=== PATIENT | male | born 1985 | race African-American/Black ===

== ENCOUNTER 2022-08-12 06:46 | Inpatient (IN) | payer OTHER ==
[~2022-08-12] VITALS: Ht 186.7 cm; Wt 110.0 kg
--- NOTE | 2022-08-12 07:04 | NUR ---
BIBGF FROM HOME C/O ABD PAIN N/V/D X2 DAYS. PT A/OX4. TOLERATING R/A WELL WITH NO RESP DISTRESS. AMB WITH STEADY GAIT. SAFETY MEASURES IN PLACE
--- NOTE | 2022-08-12 07:10 | NUR ---
BLOOD SAMPLES OBTAINED
--- NOTE | 2022-08-12 07:11 | NUR ---
PROVIDE PT WITH URINAL; AWAITING URINE SAMPLE
[2022-08-12] MEDS ORDERED: ONDANSETRON HCL/PF 4 MG/2 ML VIAL ONE (07:20)
[2022-08-12] MEDS ORDERED: MORPHINE SULFATE INJ 4 MG/ML DISP.SYRIN ONE ×2 (07:20→12:37)
--- NOTE | 2022-08-12 07:20 | NUR ---
L AC 18 g
[2022-08-12] MEDS ORDERED: IV NS 0.9% 1,000 ML BAG IV ONE (07:30)
[2022-08-12] MEDS ORDERED: MORPHINE SULFATE INJ 2 MG/ML DISP.SYRIN IV ONE (07:30)
[2022-08-12] MEDS ORDERED: ONDANSETRON HCL/PF 4 MG/2 ML VIAL IVP ONE (07:30)
[2022-08-12 07:48] LABS: CALCIUM, SERUM 9.3 mg/dL (8.5-10.1); CREATININE 1.2 mg/dL (0.6-1.3); POTASSIUM 4.1 mmol/L (3.5-5.1)
[2022-08-12 07:54] LABS: BASOPHILS % (AUTO) 0.2 % (0.0-2.0); EOSINOPHILS % (AUTO) 0.3 % (0.0-6.0); HEMATOCRIT 44 % (39-51); HEMOGLOBIN 14.9 g/dL (13.5-17.5); LYMPHOCYTES # (AUTO) 0.6 K/uL (0.8-4.8); LYMPHOCYTES % (AUTO) 9.6 % (20.0-44.0); MEAN CORPUSCULAR HGB CONC 34 g/dl (31.0-36.0); MEAN CORPUSCULAR VOLUME 89 fL (80-96); MONOCYTES # (AUTO) 0.8 K/uL (0.1-1.30); MONOCYTES % (AUTO) 12.7 % (2.0-12.0); NEUTROPHILS % (AUTO) 77.2 % (43.0-81.0); PLATELET COUNT (AUTO) 315 K/uL (150-450); RED BLOOD CELL COUNT(AUTO) 4.95 MIL/uL (4.5-6.0); WHITE BLOOD COUNT (AUTO) 6.5 K/uL (4.3-11.0)
[2022-08-12 07:55] LABS: ALBUMIN 3.5 g/dL (3.4-5.0); BILIRUBIN,DIRECT 0.2 mg/dL (0.0-0.2); BILIRUBIN,TOTAL 0.9 mg/dL (0.2-1.0); TOTAL PROTEIN, SERUM 8.8 g/dL (6.4-8.2)
--- NOTE | 2022-08-12 09:50 | NUR ---
COVID SWAB COLLECTED AND SENT TO LAB
--- NOTE | 2022-08-12 09:56 | NUR ---
[place] radha bello gave authorization to admit. [id number]
--- NOTE | 2022-08-12 11:30 | NUR ---
GOT BED 323-2 ADMITTING INFORMED.
[2022-08-12 12:27] LABS: BILIRUBIN,URINE NEGATIVE (NEGATIVE); COLOR,URINE DARK YELLOW (YELLOW); LEUKOCYTE ESTERASE ,URINE NEGATIVE (NEGATIVE); NITRITE, URINE NEGATIVE (NEGATIVE); PROTEIN,URINE TRACE mg/dl (NEGATIVE); UGLUCOSE NEGATIVE (NEGATIVE); UROBILINOGEN,URINE 0.2 EU/dL (0.2)
[2022-08-12 12:33] LABS: BACTERIA,URINE Rare /HPF (None Seen); RBC,URINE 0-2 /HPF (0-2); SQUAMOUS EPITHELIAL CELL,UR Few /HPF (None Seen); WBC,URINE 0-2 /HPF (0-3)
[2022-08-12] MEDS ORDERED: MORPHINE SULFATE INJ 4 MG/ML DISP.SYRIN IV STA (12:36)
[2022-08-12 12:55] VITALS: BP 133/79
--- NOTE | 2022-08-12 12:57 | NUR ---
ADMISSION MS RN NOTE (DAY SHIFT) Patient arrived to [address] [place] [address]/[facility] at 12:53 hours via gurney from the E.D. Patient able to stand, walk 2 steps to bed 2 in room 323. Patient presented as alert and oriented x 4, in no acute distress, mild pain, and cooperative /responsive. Will continue to care for patient per MD POC.
--- NOTE | 2022-08-12 12:58 | NUR ---
pt transfered to [address] [place], [place] [address] bedside nurse was bedside to receive pt.
[2022-08-12] MEDS ORDERED: Z GUARD REMEDY 4 OZ OINT TP PRN (13:30)
[2022-08-12] MEDS ORDERED: HYDROCODONE/APAP 5/325MG TABLET PO PRN (13:30)
[2022-08-12] MEDS ORDERED: MAGNESIUM HYDROXIDE 30 ML UDC PO PRN (13:30)
[2022-08-12] MEDS ORDERED: ZOLPIDEM TARTRATE 5 MG TABLET PO PRN (13:30)
[2022-08-12] MEDS ORDERED: MAG HYDROX/AL HYDROX/SIMETH 30 ML UDC PO PRN (13:30)
[2022-08-12] MEDS ORDERED: ACETAMINOPHEN 325 MG TABLET PO PRN (13:30)
[2022-08-12] MEDS ORDERED: ONDANSETRON HCL/PF 4 MG/2 ML VIAL IVP PRN (13:30)
[2022-08-12 16:00] VITALS: BP 130/81
--- NOTE | 2022-08-12 18:59 | NUR ---
MS RN CLOSING NOTE (DAY SHIFT) PATIENT AWAKE IN BED WITH GIRLFRIEND, THAIS, AT BEDSIDE. BED IN LOW POSITION CALL LIGHTS WITHIN REACH, NO COMPLAIN OF PAIN AND DISCOMFORT AT THIS TIME, ON ROOM AIR SATURATING WELL, PATIENT IS A/O X 4, ABLE TO MAKE NEEDS KNOWN, AMBULATORY. IV LINE AT LEFT AC#18 GAUGE WITH INFUSION OF D5 1/2 NS @ 150ML/HR INFUSING WELL. PATIENT IS NPO. KEPT CLEAN AND DRY. ALL NEEDS MET. ENDORSING TO BOARDER STEAM RNBJ, FOR GABRIELA.
--- NOTE | 2022-08-12 19:28 | NUR ---
MS RN OPENING NOTES: RECEIVED PATIENT AWAKE IN BED AWAKE, ACCOMPANIED BY FAMILY BED IN LOW POSITION CALL LIGHTS WITHIN REACH, NO COMPLAIN OF PAIN AND DISCOMFORT AT THIS TIME, ON ROOM AIR SATURATING WELL, PATIENT IS A/O X4 ABLE TO MAKE NEEDS KNOWN, AMBULATORY, ON NPO, IV LINE AT LAC#18 WITH ONGOING IV FLUID AT D5 1/2 NS@150 ML/HR INFUSING WELL, PATIENT KEPT CLEAN AND DRY ALL NEEDS MET WILL CONTINUE TO MONITOR.
[2022-08-12 20:00] VITALS: BP 115/69
[2022-08-12] MEDS: MORPHINE SULFATE INJ 2 MG/ML DISP.SYRIN IV PRN (20:17)
[2022-08-12] MEDS: IV D5/0.45 NACL 1,000 ML IV PRN (20:18)
[2022-08-13] MEDS: IV D5/0.45 NACL 1,000 ML IV PRN ×3 (03:12→19:55)
[2022-08-13 05:43] LABS: BASOPHILS % (AUTO) 0.3 % (0.0-2.0); HEMATOCRIT 40 % (39-51); HEMOGLOBIN 12.9 g/dL (13.5-17.5); LYMPHOCYTES % (AUTO) 19.5 % (20.0-44.0); MEAN CORPUSCULAR HGB CONC 33 g/dl (31.0-36.0); MEAN CORPUSCULAR VOLUME 92 fL (80-96); MONOCYTES # (AUTO) 0.9 K/uL (0.1-1.30); NEUTROPHILS # (AUTO) 3.1 K/uL (1.8-8.9); NEUTROPHILS % (AUTO) 61.2 % (43.0-81.0); PLATELET COUNT (AUTO) 270 K/uL (150-450); RED BLOOD CELL COUNT(AUTO) 4.33 MIL/uL (4.5-6.0)
[2022-08-13 06:13] LABS: CALCIUM, SERUM 8.7 mg/dL (8.5-10.1); CREATININE 1.1 mg/dL (0.6-1.3); PHOSPHORUS 3.4 mg/dL (2.5-4.9); POTASSIUM 3.8 mmol/L (3.5-5.1)
--- NOTE | 2022-08-13 06:16 | NUR ---
MS RN CLOSING NOTES: PATIENT SLEEP IN BED COMFORTABLY, BED IN LOW POSITION CALL LIGHTS WITHIN REACH, NO COMPLAIN OF PAIN AND DISCOMFORT AT THIS TIME, ON ROOM AIR SATURATING WELL, PATIENT IS A/O X4 ABLE TO MAKE NEEDS KNOWN, AMBULATORY IV LINE AT LAC#18 WITH ONGOING D5 1/2 NS@150ML/HR INFUSING WELL, PATIENT ON NPO, KEPT CLEAN AND DRY ALL NEEDS MET ENDORSE TO INCOMING SHIFT.
[2022-08-13 07:00] VITALS: BP 129/74
--- NOTE | 2022-08-13 07:22 | NUR ---
MS RN OPENING NOTES RECEIVED PATIENT ASLEEP IN BED, EASILY AWAKEN, PT IS AOX4, ABLE TO MAKE NEEDS KNONN. BREATHING WITHOUT ANY DIFFICULTY ON ROOM AIR. DENIES PAIN NOR DISCOMFORT AT THIS MOMENT. HAS IV ACCESS ON LAC G#18 PATIENT AND FLUSHING WELL WITH RUNNING D5 1/2 NS @ 150 ML/HR. PATIENT IS MAINTAINED ON NPO FOR SMALL BOWEL FOLLOW THROUGH PROCEDURE, PENDING SURGERY CONSULT WELL WITH DR SANTIAGO. SAFETY MEASURES IN PLACE: BED IN LOWEST AND LOCKED POSITION, SIDE RAILS UP X2, CALL LIGHT AND TRAY TABLE WITHIN EASY REACH. PATIENT IS ORIENTED TO ROOM AND STAFF. WILL CONTINUE TO MONITOR.
[2022-08-13] MEDS: PANTOPRAZOLE 40 MG VIAL IV SCH (08:15)
[2022-08-13 09:29] LABS: BASOPHILS % (MANUAL) 0 % (0.0-2.0); EOSINOPHILS % (MANUAL) 2 % (0-4); LYMPHOCYTES % (MANUAL) 16 % (16-48); MONOCYTES % (MANUAL) 14 % (0-11.0); NEUTROPHILS % (MANUAL) 68 (42-76)
--- NOTE | 2022-08-13 10:17 | NUR ---
RN NOTES - CALLED RADIOLOGY FOR SMALL BOWEL FOLLOW THROUGH PROCEDURE, PROCEDURE IS SCHEDULED AT NOON TIME.
[2022-08-13] MEDS ORDERED: DIATR MEGLU/DIATRIZOATE SODIUM 120 ML BOTTLE (GASTROGRAPHIN) ONE (15:34)
--- NOTE | 2022-08-13 15:45 | NUR ---
RN NOTES - PT TAKEN VIA WHEELCHAIR TO RADIOLOGY FOR SMALL BOWEL FOLLOW THROUGH.
--- NOTE | 2022-08-13 17:25 | NUR ---
RN NOTES - PATIENT WAS SENT BACK TO HIS ROOM VIA WHEELCHAIR, PATIENT WILL NEED ANOTHER ROUND OF CONTRAST DYE IN 2 HOURS.
--- NOTE | 2022-08-13 18:38 | NUR ---
MS RN CLOSING NOTES PATIENT AWAKE, STANDING AT BEDSIDE WITH GIRLFRIEND. PT IS AOX4, ABLE TO MAKE NEEDS KNOWN. STABLE ON ROOM AIR, BREATHING WITHOUT ANY DIFFICULTY. NO REPORTS OF PAIN NOR DISCOMFORT. IV ACCESS ON LAC G#18 PATENT AND FLUSHING WELL WITH RUNNING D5 1/2 NS @ 150 ML/HR. PATIENT IS STILL FOR SMALL BOWEL FOLLOW THROUGH PROCEDURE WITH RADIOLOGY. ALL NEEDS MET, ALL DUE MEDS GIVEN. SAFETY MEASURES MAINTAINED: BED IN LOWEST AND LOCKED POSITION, SIDE RAILS UP X2, CALL LIGHT AND TRAY TABLE WITHIN EASY REACH. WILL ENDORSE TO MANAGER SYSTEMS NURSE.
--- NOTE | 2022-08-13 19:12 | NUR ---
MS RN OPENING NOTES RECEIVED PATIENT RESTING IN BED AWAKE PATIENT IS AOX4, ABLE TO MAKE NEEDS KNOWN. WITH GIRLFRIEND ON BEDSIDE. STABLE ON ROOM AIR, BREATHING WITHOUT ANY DIFFICULTY. NO REPORTS OF PAIN OR DISCOMFORT AT THIS TIME. IV ACCESS ON LAC G#18 NOTED TO PATENT AND FLUSHING WELL WITH RUNNING D5 1/2 NS @ 150 ML/HR. PATIENT IS NPO AND ON SMALL BOWEL FOLLOW THROUGH PROCEDURE WITH RADIOLOGY. SAFETY MEASURES MAINTAINED: BED IN LOWEST AND LOCKED POSITION, SIDE RAILS UP X2, CALL LIGHT AND TRAY TABLE WITHIN EASY REACH.
--- NOTE | 2022-08-13 20:23 | NUR ---
RN NOTE PATIENT CLAIMS TO HAVE PAIN ON HIS ABDOMEN SCALE OF 9/10. MORPHINE IS GIVEN ACCORDING TO PAIN SCALE. WILL REASSESS.
[2022-08-13 20:34] VITALS: BP 124/80
[2022-08-13] MEDS: MORPHINE SULFATE INJ 2 MG/ML DISP.SYRIN IV PRN (20:36)
--- NOTE | 2022-08-13 20:44 | NUR ---
RN NOTE PATIENT FELT NAUSEOUS AND VOMITED X1 WITH BROWNISH FLUID 50CC. ZOFRAN IS GIVEN. WILL REASSESS.
--- NOTE | 2022-08-13 21:06 | NUR ---
RN NOTE REASSESSED PAIN. PATIENT CLAIMS TO HAVE RELIEF OF PAIN SCALE OF 3/10. PATIENT FELT RELIEVED FROM BEING NAUSEOUS
--- NOTE | 2022-08-13 21:08 | NUR ---
RN NOTE RECEIVED CALL FROM [facility] ASKING FOR DR LANDAVERDE REGARDING PATIENT SMALL BOWEL FOLLOW THROUGH. MESSAGED DR LANDAVERDE TO CONTACT [facility] [phone][address] DR LANDAVERDE CONTACT NUMBER WAS GIVEN TO [facility].
[2022-08-14] MEDS: IV D5/0.45 NACL 1,000 ML IV PRN (05:25)
[2022-08-14 06:53] LABS: BASOPHILS % (AUTO) 0.3 % (0.0-2.0); EOSINOPHILS % (AUTO) 1.3 % (0.0-6.0); HEMATOCRIT 38 % (39-51); HEMOGLOBIN 12.6 g/dL (13.5-17.5); LYMPHOCYTES # (AUTO) 1.3 K/uL (0.8-4.8); LYMPHOCYTES % (AUTO) 19.6 % (20.0-44.0); MEAN CORPUSCULAR HGB CONC 33 g/dl (31.0-36.0); MEAN CORPUSCULAR VOLUME 91 fL (80-96); MONOCYTES % (AUTO) 15.1 % (2.0-12.0); NEUTROPHILS # (AUTO) 4.3 K/uL (1.8-8.9); NEUTROPHILS % (AUTO) 63.7 % (43.0-81.0); PLATELET COUNT (AUTO) 285 K/uL (150-450); RED BLOOD CELL COUNT(AUTO) 4.18 MIL/uL (4.5-6.0); WHITE BLOOD COUNT (AUTO) 6.7 K/uL (4.3-11.0)
--- NOTE | 2022-08-14 06:53 | NUR ---
MS RN CLOSING NOTE PATIENT RESTING IN BED AWAKE PATIENT IS AOX4, ABLE TO MAKE NEEDS KNOWN. STABLE ON ROOM AIR, BREATHING WITHOUT ANY DIFFICULTY. NO REPORTS OF PAIN OR DISCOMFORT AT THIS TIME. IV ACCESS ON LAC G#18 NOTED TO PATENT AND FLUSHING WELL INFUSING D5 1/2 NS @ 150 ML/HR. PATIENT IS NPO. ALL DUE MEDICATION IS GIVEN, ALL NEEDS ARE MET. MADE SURE PATIENT IS CLEAN AND COMFORTABLE. SAFETY MEASURES MAINTAINED: BED IN LOWEST AND LOCKED POSITION, SIDE RAILS UP X2, CALL LIGHT AND TRAY TABLE WITHIN EASY REACH. ENDORSED TO NEXT SHIFT NURSE FOR CONTINUITY OF CARE.
[2022-08-14 07:00] VITALS: BP_SYST 121; BP_SYST 166; BP_DIAS 76; BP_DIAS 92
[2022-08-14 07:09] LABS: CALCIUM, SERUM 8.8 mg/dL (8.5-10.1); CREATININE 1.2 mg/dL (0.6-1.3); PHOSPHORUS 3.7 mg/dL (2.5-4.9); POTASSIUM 3.3 mmol/L (3.5-5.1)
--- NOTE | 2022-08-14 07:20 | NUR ---
MS RN OPENING NOTES RECEIVED PATIENT AWAKE IN BED. PT IS AOX4, ABLE TO MAKE NEEDS KNOWN. BREATHING WITHOUT ANY DIFFICULTY ON ROOM AIR. DENIES PAIN NOR DISCOMFORT AT THIS MOMENT. HAS IV ACCESS ON LAC G#18 PATIENT AND FLUSHING WELL WITH RUNNING D5 1/2 NS @ 150 ML/HR. SAFETY MEASURES IN PLACE: BED IN LOWEST AND LOCKED POSITION, SIDE RAILS UP X2, CALL LIGHT AND TRAY TABLE WITHIN EASY REACH. PATIENT IS ORIENTED TO ROOM AND STAFF. WILL CONTINUE TO MONITOR.
[2022-08-14] MEDS: PANTOPRAZOLE 40 MG VIAL IV SCH (08:13)
[2022-08-14] MEDS: POTASSIUM CL. PREMIX PERIPHER. 50 ML IV SCH ×2 (11:04→12:04)
[2022-08-14] MEDS ORDERED: Potassium Chloride 20 MEQ in IV NS 0.9% 1,000 ML IV SCH (13:00)
--- NOTE | 2022-08-14 14:22 | NUR ---
RN NOTES - DR CORDOVA ORDERED TO STOP 20 MEQ KCL IN 1000 ML NS AND ORDERED D5 NS @100 ML/HR INSTEAD.
[2022-08-14] MEDS ORDERED: IV D5/ 0.9% NACL 1,000 ML IV PRN (14:30)
[2022-08-14 16:00] VITALS: BP 132/89
--- NOTE | 2022-08-14 17:30 | NUR ---
AMA NOTES PT IS AOX4 VERBALIZED THAT HE WANTS TO LEAVE THE HOSPITAL AGAINST MEDICAL ADVISE AND WILL SEEK TREATMENT ELSEWHERE, EXPLAINED RISKS AND CONSEQUENCES OF LEAVING THE HOSPITAL UP TO POSSIBLE , PATIENT VERBALIZED UNDERSTANDING AND STILL INSISTED IN LEAVING AMA. GIRLFRIEND IS PRESENT AT BEDSIDE AND SPOKE TO THE CHARGE NURSE WELL. ALL BELONGINGS ACCOUNTED FOR AND FORM SIGNED. GIVEN COPIES OF THE DIAGNOSTICS AND PROCEDURES THAT WERE DONE. IV ACCESS REMOVED AND PRESSURE GAUZE APPLIED, NO BLEEDING NOTED. ARM BAND REMOVED. PATIENT LEFT THE UNIT ON FOOT WITH GIRLFRIEND AT AROUND 1724. MD AND CHARGE NURSE AWARE.
== END 2022-08-14 18:18 | disposition left against medical advice (07) | DRG 247 ==
LOC: ER 06:49 → MED 12:12
PROVIDERS: ADMIT Student in an Organized Health Care Education/Training Program; ATTEND Student in an Organized Health Care Education/Training Program
DX: K56.609 Unspecified intestinal obstruction, unspecified as to partial versus complete obstruction (principal); E87.1 Hypo-osmolality and hyponatremia; K56.7 Ileus, unspecified; Z90.49 Acquired absence of other specified parts of digestive tract; E87.6 Hypokalemia; Z87.19 Personal history of other diseases of the digestive system; K52.9 Noninfective gastroenteritis and colitis, unspecified; R73.9 Hyperglycemia, unspecified; R80.9 Proteinuria, unspecified; R59.0 Localized enlarged lymph nodes
CPT/HCPCS: 36415; 74250-TC; 80048-TC; 80076-TC; 81001; 83690-TC; 83735-TC; 84100-TC; 85025-TC; 87081-TC; A4223; C9113; C9803; G0378; J2270; J2405; J3480; J3490; J7030; J7042; Q9963